=== PATIENT | male | born 1950 | race Caucasian/White ===

== ENCOUNTER 2017-09-29 16:25 | Emergency (ER) | payer MEDICARE, MEDICAID ==
[~2017-09-29] VITALS: Ht 182.9 cm; Wt 127.3 kg
[2017-09-29] MEDS ORDERED: ondansetron 4mg rapidly disintigrating tab PO ONE (17:40)
[2017-09-29] MEDS ORDERED: HYDROmorphone 1 mg/ml syringe IM ONE (17:40)
[2017-09-29 19:06] VITALS: BP 146/93
== END 2017-09-29 19:00 | disposition home or self-care (01) ==
LOC: ER 16:25
DX: R33.9 Retention of urine, unspecified (principal); F17.200 Nicotine dependence, unspecified, uncomplicated; F12.90 Cannabis use, unspecified, uncomplicated
CPT/HCPCS: 51702; 96372; 99284; A4315; J1170

== ENCOUNTER 2022-01-20 11:01 | Emergency (ER) | payer MEDICARE, MEDICAID ==
[~2022-01-20] VITALS: Ht 185.4 cm; Wt 146.0 kg
[2022-01-20] MEDS ORDERED: mag hydrox/Alum hydrox/simeth 30ml oral suspension PO ONE (11:40)
[2022-01-20] MEDS ORDERED: LIDOcaine Viscous 15ml cup MM ONE (11:40)
[2022-01-20 11:52] LABS: BASOPHILS # (AUTO) 0.1 X10'3 (0-0.2); EOSINOPHILS % (AUTO) 0.3 % (0-6); LYMPHOCYTES # (AUTO) 1.5 X10'3 (1.1-4.8); LYMPHOCYTES % (AUTO) 15.3 % (21-51); MEAN CORPUSCULAR HEMOGLOBIN 30.4 PG (27.0-31.0); MEAN CORPUSCULAR HGB CONC 33.3 g/dL (33.0-36.5); MEAN CORPUSCULAR VOLUME 91.5 FL (78-98); MEAN PLATELET VOLUME 9.8 FL (7.4-10.4); MONOCYTES # (AUTO) 0.6 X10'3 (0-0.9); MONOCYTES % (AUTO) 6.5 % (2-12); NEUTROPHILS # (AUTO) 7.4 X10'3 (1.8-7.7); NEUTROPHILS % (AUTO) 76.9 % (42-75); PLATELET COUNT 267 X10'3 (140-440); RED BLOOD COUNT 4.91 X10'6 (4.70-6.10); RED CELL DISTRIBUTION WIDTH 14.4 % (11.5-14.5); WHITE BLOOD COUNT 9.6 X10'3 (4.5-11.0)
[2022-01-20 12:08] LABS: ALANINE AMINOTRANSFERASE 18 U/L (12-78); ALBUMIN 3.5 G/DL (3.4-5.0); ALKALINE PHOSPHATASE 59 IU/L (46-116); ANION GAP 10 (8-16); ASPARTATE AMINO TRANSFERASE 15 U/L (10-37); BILIRUBIN,TOTAL 0.6 MG/DL (0.1-1.0); BLOOD UREA NITROGEN 10 MG/DL (7-18); BUN/CREATININE RATIO 9.7 (5.4-32.0); CALCIUM 10.2 MG/DL (8.5-10.1); CHLORIDE 100 MMOL/L (99-107); CREATININE 1.03 MG/DL (0.60-1.10); GLUCOSE 125 MG/DL (70-104); SODIUM 140 MMOL/L (135-145); TOTAL CARBON DIOXIDE 29.7 MMOL/L (24-32); TOTAL PROTEIN 7.1 G/DL (6.4-8.2); eGFR 71 ML/MIN
[2022-01-20 12:23] LABS: D-DIMER 2.75 MG/L FEU (0-0.50)
[2022-01-20] MEDS ORDERED: iohexol 350MG/ML 100ml bottle IV ONE (12:31)
[2022-01-20 13:32] VITALS: BP 123/93
== END 2022-01-20 14:28 | disposition home or self-care (01) ==
LOC: ER 11:01
DX: R07.9 Chest pain, unspecified (principal); R91.1 Solitary pulmonary nodule; I48.91 Unspecified atrial fibrillation; J44.9 Chronic obstructive pulmonary disease, unspecified; F12.90 Cannabis use, unspecified, uncomplicated
CPT/HCPCS: 36415; 71045; 71275; 80053; 83880; 84145; 84484; 85025; 85379; 93005; 99285; J3490; Q9967

== ENCOUNTER 2022-11-05 23:04 | Emergency (ER) | payer MEDICARE, MEDICAID ==
[~2022-11-05] VITALS: Ht 188 cm; Wt 145.4 kg
[2022-11-05 23:11] VITALS: BP 134/90; PULSE 88; RESP 18; TEMP 96; O2SAT 97
[2022-11-06] MEDS ORDERED: BUPR1TAB44 SL (00:31)
[2022-11-06] MEDS: buprenorphine/naloxone 8MG-2MG SUBlingual film SL SCH ×2 (00:52→00:53)
== END 2022-11-06 01:08 | disposition home or self-care (01) ==
LOC: ER 23:05
DX: F11.23 Opioid dependence with withdrawal (principal); J44.9 Chronic obstructive pulmonary disease, unspecified; F12.90 Cannabis use, unspecified, uncomplicated
CPT/HCPCS: 99283